=== PATIENT | male | born 1985 | race Caucasian/White ===

== ENCOUNTER → 2017-03-28 | Outpatient (CLI) | payer BC, OTHER ==
[~2017-03-28] MED LIST: CEPH500C PO
--- NOTE | 2017-03-28 19:08 | DIAGNOSTIC IMAGING REPORT ---
CHEST 2 VIEWS ROUTINE CLINICAL HISTORY: Atypical chest pain, shortness of breath, cough. Dyspnea on exertion. COMPARISON STUDY: No previous studies for comparison. FINDINGS: The cardiac and mediastinal contours are normal. There is no evidence of focal pulmonary consolidation. There is no evidence of failure. No pleural effusions are visualized.[ IMPRESSION: No active disease in the chest. Electronically signed by: Miguel Lam M.D. 03/28/2017 7:06 PM Dictated Date/Time: 03/28/2017 7:06 PM
[2017-03-28 19:54] LABS: THYROID STIMULATING HORMONE 2.01 uIu/ml (0.300-4.500)
[2017-03-28 20:41] LABS: LYME DISEASE AB IGG NEG (NEG); LYME DISEASE AB IGM NEG (NEG)
[2017-04-06 07:58] LABS: 18KDIGG BAND NONREACTIVE (NONREACTIVE); 23KDIGG BAND NONREACTIVE (NONREACTIVE); 23KDIGM BAND NONREACTIVE (NONREACTIVE); 28KDIGG BAND NONREACTIVE (NONREACTIVE); 30KDIGG BAND NONREACTIVE (NONREACTIVE); 39KDIGG BAND NONREACTIVE (NONREACTIVE); 39KDIGM BAND NONREACTIVE (NONREACTIVE); 41KDIGG BAND REACTIVE (NONREACTIVE); 41KDIGM BAND NONREACTIVE (NONREACTIVE); 45KDIGG BAND NONREACTIVE (NONREACTIVE); 58KDIGG BAND NONREACTIVE (NONREACTIVE); 66KDIGG BAND NONREACTIVE (NONREACTIVE); 93KDIGG BAND NONREACTIVE (NONREACTIVE)
== END | disposition home or self-care (01) ==
LOC: C.RAD 18:40
PROVIDERS: ATTEND Internal Medicine
DX: R07.9 Chest pain, unspecified (principal); R53.83 Other fatigue

== ENCOUNTER → 2017-05-02 | Outpatient (CLI) | payer BC ==
[2017-05-02 19:27] LABS: THYROID STIMULATING HORMONE 1.64 uIu/ml (0.300-4.500)
== END | disposition home or self-care (01) ==
LOC: C.LAB 16:39
PROVIDERS: ATTEND Internal Medicine Endocrinology, Diabetes & Metabolism
DX: R94.6 Abnormal results of thyroid function studies (principal)

== ENCOUNTER → 2018-03-29 | Outpatient (CLI) | payer OTHER, BC ==
--- NOTE | 2018-03-29 12:09 | DIAGNOSTIC IMAGING REPORT ---
PELVIS WITHOUT CONTRAST (MRI) HISTORY: Pain in right groin. SPORTS HERNIA TECHNIQUE: Multiplanar multisequence MRI of the pelvis performed without the use of intravenous contrast. COMPARISON STUDY: None. FINDINGS: Mild marrow edema within the anterior aspect of the pubic body. Best seen on sagittal T2 fat-sat image 22 and axial oblique STIR image 12 there is subtle increased T2 signal at the right rectus abdominis-adductor longus aponeurosis. These findings favor a low-grade partial tear. There is no fluid cleft to suggest a full-thickness tear. Otherwise, the rectus abdominis and adductor longus muscles are intact. No fractures within the visualized osseous structures. IMPRESSION: Subtle increased T2 signal within the right rectus rectus abdominis-adductor longus aponeurosis which favors a low-grade partial tear. No fluid cleft to suggest a full-thickness tear. 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 Electronically signed by: Dwight Oliveira M.D. 03/29/2018 12:07 PM Dictated Date/Time: 03/29/2018 11:42 AM
== END | disposition home or self-care (01) ==
LOC: C.MRI 08:05
PROVIDERS: ATTEND Family Medicine Sports Medicine
DX: S76.211A Strain of adductor muscle, fascia and tendon of right thigh, initial encounter (principal); X58.XXXA Exposure to other specified factors, initial encounter